=== PATIENT | female | born 1950 | race Caucasian/White ===

== ENCOUNTER 2020-12-25 16:19 | Inpatient (IN) | payer MEDICARE, BC ==
[2020-12-25] MEDS ORDERED: Diltiazem 125 MG/25 ML ONE (16:49)
[2020-12-25 17:09] LABS: #Eosinphils 0.2 thou/uL (0.0-0.7); #Lymphocytes 2.2 thou/uL (1.20-3.40); #Monocytes 0.7 thou/uL (0.11-0.59); #Neutrophils 4.6 thou/uL (1.40-6.50); %Basophils 0.6 % (0.0-1.0); %Eosinophils 3.1 % (0.0-10.0); %Lymphocytes 28.2 % (21.0-51.0); %Monocytes 9.1 % (0.0-10.0); %Neutrophils 59.1 % (42.0-75.0); Mean Corpuscular HGB CONC 33.9 g/dL (32.0-36.0); Mean Corpuscular Hemoglobin 33.3 pg (27.0-31.0); Mean Corpuscular Volume 98.2 fL (78.0-98.0); Mean Platelet Volume 7.1 fL (7.4-10.4); Platelet Count 259 thou/uL (130-400); RBC Distribution Width 11.9 % (11.5-14.5); Red Blood Cell (RBC) Count 4.21 mill/uL (4.20-5.40); White Blood Cell (WBC) Count 7.8 thou/uL (4.8-10.8)
--- NOTE | 2020-12-25 17:10 | RAD ---
EXAM: Single view of the chest HISTORY: Lightheadedness and dizziness COMPARISON: 12/05/2020 FINDINGS: Single view of the chest shows a normal sized cardiomediastinal silhouette. Atheroscleroti c calcifications are seen in the aorta. There is no evidence of consolidation, mass, or pleural effusion. No acute osseous abnormality. Postsurgical changes are seen in the left shoulder. IMPRESSION: No evidence of acute cardiopulmonary disease
[2020-12-25 17:55] LABS: ALT (SGPT) 46 U/L (8-55); AST (SGOT) 35 U/L (5-34); Albumin 4.1 g/dL (3.4-4.8); Alkaline Phosphatase 74 U/L (40-110); Anion Gap 16 mmol/L (10-20); BUN (Urea Nitrogen) 15 mg/dL (9.8-20.1); Bilirubin, Total 0.4 mg/dL (0.2-1.2); CK (CPK) 55 U/L (29-168); Calc. Creatinine Clearance 0 mL/min (70-130); Calcium 8.7 mg/dL (7.8-10.44); Carbon Dioxide 19 mmol/L (23-31); Chloride 109 mmol/L (98-107); Globulin 2.9 g/dL (2.4-3.5); Glucose 80 mg/dL (83-110); Potassium 3.7 mmol/L (3.5-5.1); Sodium 140 mmol/L (136-145)
[2020-12-25] MEDS ORDERED: Acetaminophen 650 MG Suppository PR PRN (19:29)
[2020-12-25] MEDS ORDERED: Acetaminophen 325 MG TAB PO PRN (19:29)
[2020-12-25 20:05] LABS: Troponin I 0.017 ng/mL (< 0.028)
[2020-12-25 21:12] LABS: Lactic Acid 0.9 mmol/L (0.5-2.2)
[2020-12-25] MEDS ORDERED: Famotidine 20 MG TAB PO SCH (23:00)
[2020-12-25] MEDS ORDERED: Metoprolol Tartrate 25 MG TAB PO SCH (23:00)
[2020-12-25] MEDS ORDERED: Dextrose 5 %-0.45 % NaCl 1,000 ML IV SCH (23:00)
[2020-12-25 23:30] VITALS: BMI 24.0
--- NOTE | 2020-12-25 23:36 | PDOC.HHP ---
Hospitalist HPI History of Present Illness: ADMISSION DATE: 12/25/2019 TIME OF ASSESSMENT: 1900 CHIEF COMPLAINT: Palpitations HPI: This is a 70-year-old woman who states she is normally healthy at baseline who presented to the emergency department today with complaints of palpitations and difficulty catching her breath earlier today. She was seen at the clinic in [place] and treated with 60 mg of diltiazem as well as 800 mL of normal saline after she was found to be in A. fib RVR with a heart rate in the 120s. She was apparently lightheaded and her symptoms improved after the diltiazem was given. Patient reports having a Covid infection in November and tested positive on 11/19/2020. She states she followed up with her primary care physician recently and was noted to have an elevated D-dimer therefore started on Eliquis 5 mg p.o. twice daily. The patient denies undergoing any CT imaging of her chest. She has been compliant with medications. Denies any difficulty with her breathing prior to today and the trouble breathing she had earlier today has settled since her heart rate improved. Denies having any cough or hemoptysis. Denies any chest pain but does report discomfort in the left posterior thorax which she states is not tender to palpation and not made worse with any movement. No lower leg swelling or edema. No calf tenderness. Reports having a good appetite without any nausea or vomiting. No abdominal pain or cramping. No bowel changes or urinary symptoms. Has not had any recent fevers, chills or sweats. All other review of systems are negative. ED COURSE: EKG repeated here in the ER showed A. fib RVR with a heart rate of 109. Infrequent PVCs present. Labs done showed a white cell count of 7.8, hemoglobin 14, hematocrit 41.4, platelets of 59, neutrophils 59.1%. Sodium 140, potassium 3.7, BUN 15, creatinine 0.82, GFR 69, glucose 80, LFTs notable for an AST of 35 otherwise unremarkable. CK 55. D-dimer negative. TSH is 0.4529. Troponin negative. BNP slightly elevated at 104.5. Chest x-ray demonstrated no evidence of acute cardiopulmonary process. The patient was given 10 mg of Cardizem IV push. Allergies/Adverse Reactions: Allergy/AdvReac Type Severity Reaction Status Date / Time codeine Allergy Nausea Verified 12/25/20 22:52 diphenhydramine Allergy Verified 12/25/20 22:52 [From Benadryl] Home Medications: Medication Instructions Recorded Confirmed Type Apixaban [Eliquis] 5 mg PO BID 12/25/20 12/25/20 History Thyroid,Pork [[place] Thyroid] 60 mg PO QAM 12/25/20 12/25/20 History Past History: PAST MEDICAL HISTORY: 1. GERD 2. Hypothyroidism 3. Chronic cough 4. Mixed hyperlipidemia PAST SURGICAL HISTORY: None SOCIAL HISTORY: She is fully independent at baseline and lives with her . Denies any tobacco use, alcohol consumption or drug use. FAMILY HISTORY: Noncontributory Hospitalist Exam Vitals: Weight Weight 144 lb 11.2 oz General Appearance: NAD, awake alert Eye: PERRL, anicteric sclera ENT: normocephalic atraumatic, no oropharyngeal lesions, moist mucosa Neck: supple, no lymphadenopathy Heart: RRR, no murmur, no gallops, no rubs, normal peripheral pulses Respiratory: CTAB, no wheezes, no rales, no ronchi, normal chest expansion Gastrointestinal: soft, non-tender, non-distended, normal bowel sounds, no palpable masses Extremities: no edema Skin: normal turgor, no lesions, no rashes Neurological: cranial nerve grossly intact, normal sensation to touch, no weakness Musculoskeletal: normal tone, normal strength, no muscle wasting Psychiatric: normal affect, normal behavior, A&O x 3 Hospitalist Results Result Diagrams: 12/25/20 16:56 12/25/20 16:56 Lab results: Laboratory Last Values WBC 7.8 thou/uL (4.8-10.8) 12/25/20 16:56 RBC 4.21 mill/uL (4.20-5.40) 12/25/20 16:56 Hgb 14.0 g/dL (12.0-16.0) 12/25/20 16:56 Hct 41.4 % (36.0-47.0) 12/25/20 16:56 MCV 98.2 fL (78.0-98.0) H 12/25/20 16:56 MCH 33.3 pg (27.0-31.0) H 12/25/20 16:56 MCHC 33.9 g/dL (32.0-36.0) 12/25/20 16:56 RDW 11.9 % (11.5-14.5) 12/25/20 16:56 Plt Count 259 thou/uL (130-400) 12/25/20 16:56 MPV 7.1 fL (7.4-10.4) L 12/25/20 16:56 Neutrophils % 59.1 % (42.0-75.0) 12/25/20 16:56 Lymphocytes % 28.2 % (21.0-51.0) 12/25/20 16:56 Monocytes % 9.1 % (0.0-10.0) 12/25/20 16:56 Eosinophils % 3.1 % (0.0-10.0) 12/25/20 16:56 Basophils % 0.6 % (0.0-1.0) 12/25/20 16:56 Neutrophils # 4.6 thou/uL (1.40-6.50) 12/25/20 16:56 Lymphocytes # 2.2 thou/uL (1.20-3.40) 12/25/20 16:56 Monocytes # 0.7 thou/uL (0.11-0.59) H 12/25/20 16:56 Eosinophils # 0.2 thou/uL (0.0-0.7) 12/25/20 16:56 Basophils # 0.0 thou/uL (0.0-0.2) 12/25/20 16:56 D-Dimer 0.38 *mcg/mL (0.27-0.43) 12/25/20 16:56 Sodium 140 mmol/L (136-145) 12/25/20 16:56 Potassium 3.7 mmol/L (3.5-5.1) 12/25/20 16:56 Chloride 109 mmol/L (98-107) H 12/25/20 16:56 Carbon Dioxide 19 mmol/L (23-31) L 12/25/20 16:56 Anion Gap 16 mmol/L (10-20) 12/25/20 16:56 BUN 15 mg/dL (9.8-20.1) 12/25/20 16:56 Creatinine 0.82 mg/dL (0.6-1.1) 12/25/20 16:56 Estimated GFR (MDRD) 69 12/25/20 16:56 Glucose 80 mg/dL (83-110) L 12/25/20 16:56 Lactic Acid 0.9 mmol/L (0.5-2.2) 12/25/20 20:43 Calcium 8.7 mg/dL (7.8-10.44) 12/25/20 16:56 Magnesium 2.2 mg/dL (1.6-2.6) 12/25/20 19:34 Total Bilirubin 0.4 mg/dL (0.2-1.2) 12/25/20 16:56 AST 35 U/L (5-34) H 12/25/20 16:56 ALT 46 U/L (8-55) 12/25/20 16:56 Alkaline Phosphatase 74 U/L (40-110) 12/25/20 16:56 Creatine Kinase 55 U/L (29-168) 12/25/20 16:56 Troponin I 0.017 ng/mL (< 0.028) 12/25/20 19:34 C-Reactive Protein 0.62 mg/dL (= or < 0.5) H 12/25/20 20:43 B-Natriuretic Peptide 104.5 pg/mL (0-100) H 12/25/20 16:56 Serum Total Protein 7.0 g/dL (5.8-8.1) 12/25/20 16:56 Albumin 4.1 g/dL (3.4-4.8) 12/25/20 16:56 Globulin 2.9 g/dL (2.4-3.5) 12/25/20 16:56 Albumin/Globulin Ratio 1.4 g/dL (1.2-2.2) 12/25/20 16:56 TSH 3rd Generation 0.4529 uIU/mL (0.35-4.94) 12/25/20 16:56 Hospitalist H&P A/P (1) Atrial fibrillation with RVR Code(s): I48.91 - UNSPECIFIED ATRIAL FIBRILLATION Status: Acute Assessment and Plan: Currently rate-controlled Rule out underlying infection i.e. UTI UA w/reflex Cx ordered Cardiac monitoring Continue to trend trop Cardiac consult ordered (2) Palpitations Code(s): R00.2 - PALPITATIONS Status: Resolved Assessment and Plan: Has resolved As above (3) Personal history of COVID-19 Code(s): Z86.16 - PERSONAL HISTORY OF COVID-19 Status: Acute Assessment and Plan: Recent COVID infection in 11/2020. CXR unremarkable. No s/s of COVID at present (4) On anticoagulant therapy Code(s): Z79.01 - [employer] (CURRENT) USE OF ANTICOAGULANTS Status: Acute Assessment and Plan: On Eliquis 5 mg BID For recent elevated d-dimer D-Dimer done today was normal (5) GERD (gastroesophageal reflux disease) Code(s): K21.9 - GASTRO-ESOPHAGEAL REFLUX DISEASE WITHOUT ESOPHAGITIS Status: Chronic Assessment and Plan: Famotidine 20 mg BID PO (6) Hypothyroidism Code(s): E03.9 - HYPOTHYROIDISM, UNSPECIFIED Status: Chronic Assessment and Plan: Resume home meds once doses verified Plan: CODE STATUS FULL Case discussed with Dr. Gordon who agrees with plan as above.
[2020-12-26 00:04] LABS: Troponin I 0.017 ng/mL (< 0.028)
[2020-12-26 01:03] LABS: Bacteria/HPF None Seen HPF (None Seen); Bilirubin Negative (Negative); Blood, Urine Negative (Negative); Clarity Clear (Clear); Glucose, Urine (Dipstick) Normal (Negative); Ketone, Urine Negative (Negative); Leukocyte Negative Leu/uL (Negative); Nitrite Negative (Negative); Protein, Urine (Dipstick) Negative (Neg-Trace); RBC/HPF 0-3 HPF (0-3); Specific Gravity, Urine 1.007 (1.002-1.036); Squamous Epithelial 0-3 HPF (0-3); Urobilinogen Normal mg/dL (Less than 2); WBC/HPF 0-3 HPF (0-3); pH, Urine 6.5 (5.0-9.0)
[2020-12-26] MEDS: Famotidine 20 MG TAB PO SCH ×3 (01:04→20:30)
[2020-12-26 01:07] LABS: Urine Culture Reflex No No
[2020-12-26 05:40] LABS: #Basophils 0.1 thou/uL (0.0-0.2); #Eosinphils 0.3 thou/uL (0.0-0.7); #Monocytes 0.6 thou/uL (0.11-0.59); #Neutrophils 3.9 thou/uL (1.40-6.50); %Basophils 1.4 % (0.0-1.0); %Eosinophils 4.8 % (0.0-10.0); %Lymphocytes 29.1 % (21.0-51.0); %Monocytes 8.9 % (0.0-10.0); %Neutrophils 55.9 % (42.0-75.0); Hemoglobin 12.5 g/dL (12.0-16.0); Mean Corpuscular HGB CONC 33.7 g/dL (32.0-36.0); Mean Corpuscular Hemoglobin 32.7 pg (27.0-31.0); Mean Corpuscular Volume 97.1 fL (78.0-98.0); Mean Platelet Volume 7.4 fL (7.4-10.4); Platelet Count 255 thou/uL (130-400); RBC Distribution Width 12.1 % (11.5-14.5); Red Blood Cell (RBC) Count 3.81 mill/uL (4.20-5.40); White Blood Cell (WBC) Count 6.9 thou/uL (4.8-10.8)
[2020-12-26 06:00] LABS: Anion Gap 12 mmol/L (10-20); BUN (Urea Nitrogen) 13 mg/dL (9.8-20.1); Calc. Creatinine Clearance 66 mL/min (70-130); Calcium 8.3 mg/dL (7.8-10.44); Carbon Dioxide 19 mmol/L (23-31); Chloride 106 mmol/L (98-107); Glucose 110 mg/dL (83-110); Sodium 133 mmol/L (136-145)
--- NOTE | 2020-12-26 08:19 | PDOC.HOSPP ---
- Subjective Encounter Date: 12/26/20 Encounter Time: 08:16 Subjective: alert, lightheadedness resolved - Objective Vital Signs & Weight: Vital Signs (12 hours) Temp Pulse Resp BP BP Pulse Ox 12/26/20 08:00 96.8 F L 70 18 94/43 L 95 12/26/20 03:22 98.4 F 64 16 101/52 L 96 12/25/20 23:00 120/56 L 12/25/20 22:54 97.6 F 73 18 176/61 H 98 Weight Weight 144 lb 11.2 oz I&O: 12/25/20 12/26/20 12/27/20 06:59 06:59 06:59 Intake Total 765 Output Total 250 Balance 515 Result Diagrams: 12/26/20 04:56 12/26/20 04:56 Hospitalist ROS - Medication Medications: Active Medications Generic Name Dose Route Start Last Admin Trade Name Freq PRN Reason Stop Dose Admin Famotidine 20 mg 12/25/20 21:00 12/26/20 01:04 Famotidine 20 Mg Tab PO Not Given BID [facility] Hospitalist Exam Vitals: Vital Signs (12 hours) Temp Pulse Resp BP BP Pulse Ox 12/26/20 08:00 96.8 F L 70 18 94/43 L 95 12/26/20 03:22 98.4 F 64 16 101/52 L 96 12/25/20 23:00 120/56 L 12/25/20 22:54 97.6 F 73 18 176/61 H 98 Weight Weight 144 lb 11.2 oz General Appearance: awake alert Neck: no JVD Heart: RRR, no murmur Respiratory: CTAB Gastrointestinal: soft, normal bowel sounds Extremities: no edema Hosp A/P (1) Atrial fibrillation with RVR Code(s): I48.91 - UNSPECIFIED ATRIAL FIBRILLATION Status: Acute (2) On anticoagulant therapy Code(s): Z79.01 - LONG-TERM (CURRENT) USE OF ANTICOAGULANTS Status: Chronic (3) GERD (gastroesophageal reflux disease) Code(s): K21.9 - GASTRO-ESOPHAGEAL REFLUX DISEASE WITHOUT ESOPHAGITIS Status: Chronic Qualifiers: Esophagitis bleeding: unspecified whether hemorrhage (4) Hypothyroidism Code(s): E03.9 - HYPOTHYROIDISM, UNSPECIFIED Status: Chronic Qualifiers: Hypothyroidism type: acquired Qualified Code(s): E03.9 - Hypothyroidism, unspecified - Plan now in RSR, cont metoprolol cont anticoagulant TSH normal, ECHO, cardiology consult pending
[2020-12-26] MEDS: Thyroid 60 MG TAB PO SCH (09:41)
[2020-12-26] MEDS: Metoprolol Tartrate 25 MG TAB PO SCH ×2 (09:42→20:31)
[2020-12-26] MEDS: Apixaban 5 MG TAB PO SCH ×2 (09:42→20:31)
--- NOTE | 2020-12-26 21:31 | CON ---
DATE OF CONSULTATION: 12/26/2020 CHIEF COMPLAINT: Palpitations. HISTORY OF PRESENT ILLNESS: Ms. Way is a pleasant 70-year-old female who presented to the hospital via the EMS from her primary care doctor clinic in [place] for the chief complaint of palpitations, who was subsequently found to be in atrial fibrillation with RVR and her doctor recommended that she come to the emergency room. In the ambulance on the way to the emergency room, her heart rate was in the 120. They gave her a total of 16 mg of diltiazem and 800 mL bolus of normal saline, which improved her symptoms. Upon arrival to [facility] [place], she was still found to be in atrial fibrillation with a rate in the 120s and another 10 mg of diltiazem was given prior to leaving the ER, her rhythm converted to normal sinus rhythm. She is a relatively healthy female, who otherwise has minimal medical problems. She has a history of hypothyroidism, GERD, chronic cough, hyperlipidemia, and skin cancer. She states that she has had palpitations over the years usually about one time a week. They last less than 1 minute and resolve spontaneously with cough or deep breathing. She was diagnosed with atrial fibrillation 20 years ago in the ER after initiating levothyroxine therapy for her hypothyroidism. However, on subsequent EKGs, she had been in normal sinus rhythm. She states her blood pressure usually runs low. She denied any cardiac problems in the past. She has never had a catheterization, echo, or stress test. She does not see a marine cargo specialist. Of note, she did recover from a COVID-19 infection that was diagnosed on November 19 of this year. She has been taking multivitamins including zinc, quercetin, vitamin D, vitamin C, vitamin K, and a multivitamin since that time. REVIEW OF SYSTEMS: She denies fever, chills, shortness of breath, chest pain, cramping in her legs with activity, swelling in her legs, polydipsia, polyuria, hot or cold intolerance, nausea, vomiting, diarrhea, constipation, hematochezia, hematemesis, melena, or syncope. PAST MEDICAL HISTORY: GERD, hypothyroidism, chronic cough, hyperlipidemia, history of skin cancer. PAST SURGICAL HISTORY: Skin cancer removal and left rotator cuff repair. FAMILY HISTORY: Sister from breast cancer. Father had coronary artery disease requiring CABG. SOCIAL HISTORY: The patient is a never smoker. Occasional alcohol use. Denies illicit drug use. She is retired. PHYSICAL EXAMINATION: VITAL SIGNS: Temperature 97.7, pulse 58, respirations 18, O2 saturations 98% on room air, blood pressure 97/52. ORTHOSTATIC VITAL SIGNS: Stable. GENERAL: No acute distress. HEAD: Normocephalic. HEART: Regular rate and rhythm. No murmurs, gallops, or rubs. Pulses full and equal, 2+ throughout. LUNGS: Clear to auscultation bilaterally. MUSCULOSKELETAL: Moves all 4 extremities. LABORATORY STUDIES: Unremarkable CBC and BMP. Troponins are negative. D-dimer is downtrending from 0.92 earlier in December to 0.38 on this hospital admission. Urinalysis negative. COVID detected in the last month, therefore no test on this admission. Chest x-ray showed no acute cardiopulmonary processes. ASSESSMENT AND PLAN: 1. Atrial fibrillation with rapid ventricular response, resolved. The patient is now in normal sinus rhythm on a new regimen of metoprolol 12.5 b.i.d., status post diltiazem push in the ambulance and in the ER. An echo is pending. The patient may benefit from outpatient cardiac monitoring. We will discuss with Dr. Wilson attending further management strategies. The patient is already taking Eliquis 5 mg b.i.d. for COVID-19 infection. 2. Hypothyroidism. Continue [place] Thyroid. 3. Chronic cough. Has been seen by Pulmonology and ENT in the past. 4. Hyperlipidemia. Lipid panel earlier in December showed a cholesterol of 242. Consider adding statin therapy due to her cardiac risk. We will discuss case further with Dr. Wilson, marine cargo specialist. Thank you for the consultation. Job ID: [id number] [facility]
--- NOTE | 2020-12-27 06:34 | CON ---
DATE OF CONSULTATION: 12/26/2020 ADDENDUM: Please refer to the notes already dictated by the Family Practice resident who is on the service, Dr. Lopez. We have seen and evaluated the patient. Again this is a very pleasant 70-year-old female who was admitted with atrial fibrillation with rapid ventricular response which then converted back to sinus rhythm. I would agree with the Assessment and Plan. We visited with this patient together and examined the patient. I would refer you to the Assessment and Plan, Physical Examination as well as Past Medical History, Social History on this patient as well as History of Present Illness dictated by Dr. Lopez. IMPRESSION: This is a 70-year-old female who has had an episode of new onset atrial fibrillation which reverted back to sinus rhythm, will be placed on p.o. beta blockers. She converted after she was given IV diltiazem, but she will be maintained on p.o. metoprolol at a low dose. Since she has converted, she is somewhat hypotensive as well as bradycardic with a heart rate in the 50s. At this time, we will continue to monitor her very carefully to see whether or not she will tolerate the metoprolol and hopefully this will be the case. She did have an echocardiogram which showed an ejection fraction to be normal at 65% to 70% and the left atrium is of normal size. The full dictated report can be found in the [facility] system. She has actually already been on anticoagulation. We will continue this medical management with anticoagulation. Hypothyroidism. This appears to be under good control at this time. We will be more than happy to continue to follow the patient with you. At this time, from a cardiac standpoint, she has converted to sinus rhythm. She remained stable. We will continue to monitor her overnight to assure that she remains stable. We would also advise that she have an event monitor to determine whether or not she continues to be in sinus rhythm once she is discharged from the hospital. If not, we may need to change her to some other more potent antiarrhythmic medication. Job ID: [id number]
[2020-12-27 08:10] VITALS: TEMP 97.9
[2020-12-27] MEDS: Famotidine 20 MG TAB PO SCH (08:48)
[2020-12-27] MEDS: Apixaban 5 MG TAB PO SCH (08:48)
[2020-12-27] MEDS: Metoprolol Tartrate 25 MG TAB PO SCH (08:48)
[2020-12-27] MEDS ORDERED: GUAIFENESIN SF SOLN 200 MG/10 ML UDCUP PO PRN (09:01)
[2020-12-27] MEDS ORDERED: Loperamide HCl 2 MG CAP PO PRN (09:01)
[2020-12-27] MEDS ORDERED: Calcium Carbonate 500 MG ChewTAB PO PRN (09:01)
[2020-12-27] MEDS ORDERED: Zolpidem Tartrate 5 MG TAB PO PRN (09:01)
[2020-12-27] MEDS ORDERED: Cepastat Lozenges 1 LOZ PO PRN (09:01)
[2020-12-27] MEDS ORDERED: Ondansetron PF 4 MG/2 ML Vial IVP PRN (09:01)
[2020-12-27] MEDS ORDERED: hydrALAZINE 20 MG/ML VIAL SLOW IVP PRN (09:01)
[2020-12-27] MEDS ORDERED: Bisacodyl 5 MG TAB PO PRN (09:01)
[2020-12-27] MEDS ORDERED: Senokot S 8.6-50 MG TAB PO PRN (09:01)
[2020-12-27] MEDS ORDERED: Sodium Chloride 0.65% Nasal 44 ML BOT EA NARE PRN (09:01)
[2020-12-27] MEDS ORDERED: Ondansetron ODT 4 MG TAB PO PRN (09:01)
[2020-12-27] MEDS: Thyroid 60 MG TAB PO SCH (09:15)
[2020-12-27 11:30] VITALS: BP 91/51
--- NOTE | 2020-12-27 12:51 | PDOC.CPN ---
- Subjective Date: 12/27/20 Time: 12:48 Interval history: Patient in room, dressed and will be discharged. Event monitor placed on patient. Instructions reviewed and given to patient & spouse - Review of Systems General: denies: fever/chills, weight/appetite/sleep changes, night sweats, fatigue Respiratory: denies: cough, congestion, shortness of breath, exercise intolerance Cardiovascular: denies: chest pain, palpitation, edema, paroxysmal nocturnal dyspnea, orthopnea Gastrointestinal: denies: nausea, vomiting, diarrhea, constipation, abd pain, GI bleeding Musculoskeletal: denies: pain, tenderness, stiffness, swelling, arthritis/arthralgias Neurological: denies: numbness, syncope, seizure, weakness - Objective Allergies/Adverse Reactions: Allergies Allergy/AdvReac Type Severity Reaction Status Date / Time codeine Allergy Nausea Verified 12/25/20 22:52 diphenhydramine Allergy Verified 12/25/20 22:52 [From [facility]] Visit Medications: Current Medications Acetaminophen (Acetaminophen 325 Mg Tab) 650 mg PO Q4H PRN PRN Reason: Headache/Fever/Mild Pain (1-3) Acetaminophen (Acetaminophen 650 Mg Suppository) [address] Q4H PRN PRN Reason: Headache/Fever/Mild Pain (1-3) Apixaban (Apixaban 5 Mg Tab) 5 mg PO BID [facility] Last Admin: 12/27/20 08:48 Dose: 5 mg Documented by: Bisacodyl (Bisacodyl 5 Mg Tab) 10 mg PO DAILYPRN PRN PRN Reason: Constipation Calcium Carbonate (Calcium Carbonate 500 Mg Chewtab) 1,000 mg PO Q4H PRN PRN Reason: Heartburn or Indigestion Famotidine (Famotidine 20 Mg Tab) 20 mg PO BID [facility] Last Admin: 12/27/20 08:48 Dose: 20 mg Documented by: Guaifenesin (Guaifenesin Sf Soln 200 Mg/10 Ml Udcup) 200 mg PO Q4H PRN PRN Reason: Cough Hydralazine HCl (Hydralazine 20 Mg/Ml Vial) 10 mg SLOW IVP Q4H PRN PRN Reason: SBP > 180 and HR < 70 Loperamide HCl (Loperamide Hcl 2 Mg Cap) 2 mg PO PRN PRN PRN Reason: Diarrhea/Loose Stools Metoprolol Tartrate (Metoprolol Tartrate 25 Mg Tab) 12.5 mg PO BID [facility] Last Admin: 12/27/20 08:48 Dose: 12.5 mg Documented by: Ondansetron HCl (Ondansetron Odt 4 Mg Tab) 4 mg PO Q6H PRN PRN Reason: Nausea/Vomiting Ondansetron HCl (Ondansetron Pf 4 Mg/2 Ml Vial) 4 mg IVP Q6H PRN PRN Reason: Nausea/Vomiting Senna/Docusate Sodium (Senokot S 8.6-50 Mg Tab) 2 tab PO BID PRN PRN Reason: Constipation Sodium Chloride (Flush - Normal Saline 10 Ml Syringe) 10 ml IVF Q12HR PRN PRN Reason: Saline Flush Last Admin: 12/27/20 08:49 Dose: 10 ml Documented by: Sodium Chloride (Flush - Normal Saline 10 Ml Syringe) 10 ml IVF PRN PRN PRN Reason: Saline Flush Sodium Chloride (Sodium Chloride 0.65% Nasal 44 Ml Bot) 0 ml EA NARE QIDPRN PRN PRN Reason: Nasal Congestion Throat Lozenges (Cepastat Lozenges 1 Stanislaw) 1 stanislaw PO Q2H PRN PRN Reason: Sore Throat Thyroid (Thyroid 60 Mg Tab) 60 mg PO QAM [facility] Last Admin: 12/27/20 09:15 Dose: 60 mg Documented by: Zolpidem Tartrate (Zolpidem Tartrate 5 Mg Tab) 5 mg PO HSPRN PRN PRN Reason: Insomnia Vital Signs & Weight: Vital Signs Temp Pulse Resp BP BP BP BP 12/27/20 11:24 70 91/51 L 12/27/20 11:21 65 99/53 L 12/27/20 11:15 62 87/43 L 12/27/20 08:48 12/27/20 07:35 97.9 F 60 20 98/44 L 12/27/20 04:00 98.3 F 56 L 18 100/53 L Pulse Ox 12/27/20 11:24 12/27/20 11:21 12/27/20 11:15 12/27/20 08:48 98 12/27/20 07:35 98 12/27/20 04:00 95 Weight 144 lb 11.2 oz - CHADS-VASc Age 65-74: 1 Female: 1 Risk Score: 2 - Quality Measures Condition: Atrial Fibrillation/Flutter (hx or current) CV meds: Beta Dara: Yes, Anticoagulant: Yes - Physical Exam General: alert & oriented x3, appears well, no apparent distress Neck: supple neck, midline trachea, no JVD/HJR Cardiac: no murmur, regular rate, regular rhythm Lungs: clear to auscultation, normal breath sounds Neuro: grossly intact Abdomen: active bowel sounds, soft Extremities: no cyanosis, no clubbing, no edema Skin: clear Musculoskeletal: no pain - Labs Result Diagrams: 12/26/20 04:56 12/26/20 04:56 Troponin/CKMB Troponin I 0.017 ng/mL (< 0.028) 12/25/20 23:02 - EKG Interpretation EKG Method: Telemetry EKG: sinus rhythm - Assessment/Plan Assessment/Plan: 1. New onset atrial fibrillation: Patient is on Eliquis and Metoprolol, her BP was in the 90's this morning, she also had a reading in the 80's stystolic. Advised to hold Metoprolol if her SBP <90. She remains in sinus rhythm, she has had no episodes of atrial fibrillation overnight. 2. hypothyroidism 3. Chronic cough Patient will wear event monitor for 2 weeks as outpatient, please follow-up with Dr. Wilson in three weeks. Discussed plan with patient & spouse. Dr. Wilson at bedside, discussed plan with Dr. Wilson, patient, & spouse. Pt. seen and eval. by me. I agree with the A/P by the PRESTIDIGITATOR. We will see her back in the office in about 3 weeks and eval. the monitor for any further arrhythmias. She is to call the office if she has any symptoms in the interim. [email or web address]
--- NOTE | 2020-12-27 14:09 | PDOC.DS.DS ---
Provider Date of Admission: 12/26/20 15:37 Date of Discharge: 12/27/20 Admitting Provider: Jennifer Gordon MD Consultations: Cardiology Primary Care Physician: Unknown Course Hospital Course: This is a 70-year-old woman who states she is normally healthy at baseline who presented to the emergency department today with complaints of palpitations and difficulty catching her breath earlier today. She was seen at the clinic in [place] and treated with 60 mg of diltiazem as well as 800 mL of normal saline after she was found to be in A. fib RVR with a heart rate in the 120s. She was apparently lightheaded and her symptoms improved after the diltiazem was given. Patient reports having a Covid infection in November and tested positive on 11/19/2020. She states she followed up with her primary care physician recently and was noted to have an elevated D-dimer therefore started on Eliquis 5 mg p.o. twice daily. The patient denies undergoing any CT imaging of her chest. She has been compliant with medications. Denies any difficulty with her breathing prior to today and the trouble breathing she had earlier today has settled since her heart rate improved. Denies having any cough or hemoptysis. Denies any chest pain but does report discomfort in the left posterior thorax which she s tates is not tender to palpation and not made worse with any movement. No lower leg swelling or edema. No calf tenderness. Reports having a good appetite without any nausea or vomiting. No abdominal pain or cramping. No bowel changes or urinary symptoms. Has not had any recent fevers, chills or sweats. All other review of systems are negative. ED COURSE: EKG repeated here in the ER showed A. fib RVR with a heart rate of 109. Infrequent PVCs present. Labs done showed a white cell count of 7.8, hemoglobin 14, hematocrit 41.4, platelets of 59, neutrophils 59.1%. Sodium 140, potassium 3.7, BUN 15, creatinine 0.82, GFR 69, glucose 80, LFTs notable for an AST of 35 otherwise unremarkable. CK 55. D-dimer negative. TSH is 0.4529. Troponin negative. BNP slightly elevated at 104.5. Chest x-ray demonstrated no evidence of acute cardiopulmonary process. The patient was given 10 mg of Cardizem IV push. After admission patient remained in sinus rhythm, cardiology was consulted, ca rdiology recommended continue metoprolol 12.5 mg twice daily and the patient is given event recorder, patient will follow up with the cardiology as an outpatient basis. Echocardiography showed normal EF. Patient will continue her Eliquis and I have provided metoprolol to her pharmacy. Patient is medically stable for discharge and cardiology cleared her for discharge as well. Resuscitation Status: 12/25/20 19:29 Resuscitation Status Routine Co-Sign Provider: Resuscitation Status: FULL: Full Resuscitation Lab Results: 12/26/20 04:56 12/26/20 04:56 Abnormal Lab Results - Last 48 hrs 12/25/20 16:56: Chloride 109 H, Carbon Dioxide 19 L, AST 35 H 12/25/20 16:56: B-Natriuretic Peptide 104.5 H 12/25/20 16:56: MCV 98.2 H, MCH 33.3 H, MPV 7.1 L, Monocytes # 0.7 H 12/25/20 20:43: C-Reactive Protein 0.62 H 12/26/20 04:56: Sodium 133 L, Carbon Dioxide 19 L 12/26/20 04:56: RBC 3.81 L, MCH 32.7 H, Basophils % 1.4 H, Monocytes # 0.6 H Vitals: Vital Signs (12 hours) Temp Pulse Resp BP BP BP BP 12/27/20 11:24 70 91/51 L 12/27/20 11:21 65 99/53 L 12/27/20 11:15 62 87/43 L 12/27/20 08:48 12/27/20 07:35 97.9 F 60 20 98/44 L 12/27/20 04:00 98.3 F 56 L 18 100/53 L Pulse Ox 12/27/20 11:24 12/27/20 11:21 12/27/20 11:15 12/27/20 08:48 98 12/27/20 07:35 98 12/27/20 04:00 95 Weight Weight 144 lb 11.2 oz Physical Exam: The patient was seen and examined on the day of discharge. General Appearance: NAD, awake alert Eye: PERRL, anicteric sclera ENT: normocephalic atraumatic, no oropharyngeal lesions Neck: supple, symmetric, no JVD, no thyromegaly Respiratory: CTAB, no wheezes, no rales, no ronchi Cardiovascular: RRR, no murmur, no gallops, no rubs Gastrointestinal: soft, non-tender, non-distended Extremities: no cyanosis, no clubbing, no edema Skin: normal turgor, no lesions Neurological: no focal deficits Musculoskeletal: normal tone, normal strength PSYCH: normal affect, normal behavior Problem (1) Atrial fibrillation with RVR Code(s): I48.91 - UNSPECIFIED ATRIAL FIBRILLATION Status: Acute (2) Personal history of COVID-19 Code(s): Z86.16 - PERSONAL HISTORY OF COVID-19 Status: Acute (3) GERD (gastroesophageal reflux disease) Code(s): K21.9 - GASTRO-ESOPHAGEAL REFLUX DISEASE WITHOUT ESOPHAGITIS Status: Chronic Qualifiers: Esophagitis bleeding: unspecified whether hemorrhage (4) Hypothyroidism Code(s): E03.9 - HYPOTHYROIDISM, UNSPECIFIED Status: Chronic Qualifiers: Hypothyroidism type: acquired Qualified Code(s): E03.9 - Hypothyroidism, unspecified (5) On anticoagulant therapy Code(s): 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 Status: Chronic (6) Palpitations Code(s): R00.2 - PALPITATIONS Status: Resolved Plan Prescriptions: Metoprolol Tartrate [Lopressor] 12.5 mg PO BID #30 tab Home Medications: Medication Instructions Recorded Confirmed Type Apixaban [Eliquis] 5 mg PO BID 12/25/20 12/25/20 History Thyroid,Pork [[place] Thyroid] 60 mg PO QAM 12/25/20 12/25/20 History Metoprolol Tartrate [Lopressor] 12.5 mg PO BID #30 tab 12/27/20 Rx Allergies: codeine Allergy (Verified 12/25/20 22:52) Nausea diphenhydramine [From Benadryl] Allergy (Verified 12/25/20 22:52) Activity:: Activity as Tolerated Nourishment:: Heart Healthy Diet Therapies:: Not Applicable Equipment/Supplies:: Not Applicable IV Therapy:: Not Applicable Referrals: Belkis Wilson MD [Active] - 2-3 Weeks Andreina Reyes MD [Active] - 7 Days Disposition: HOME Quality CORE MEASURES:: N/A
== END 2020-12-27 13:05 | disposition home or self-care (01) | DRG 310 ==
LOC: ERS 16:19 → 3SE 18:52 → OBSVTOIN 12-26 15:37
PROVIDERS: ADMIT Internal Medicine; ATTEND Internal Medicine
DX: I48.91 Unspecified atrial fibrillation (principal); K21.9 Gastro-esophageal reflux disease without esophagitis; E78.2 Mixed hyperlipidemia; E03.9 Hypothyroidism, unspecified; Z79.01 Long term (current) use of anticoagulants; Z79.890 Hormone replacement therapy; Z88.6 Allergy status to analgesic agent; Z88.8 Allergy status to other drugs, medicaments and biological substances; Z86.16 Personal history of COVID-19; Z85.828 Personal history of other malignant neoplasm of skin; Z80.3 Family history of malignant neoplasm of breast; Z82.49 Family history of ischemic heart disease and other diseases of the circulatory system
CPT/HCPCS: 36415; 71045; 80048; 80053; 81001; 82550; 83605; 83735; 83880; 84443; 84484; 85025; 85379; 86140; 93005; 93306; 96374

== ENCOUNTER 2021-01-13 17:30 | Observation (INO) | payer MEDICARE, BC ==
[2021-01-13 18:05] LABS: #Basophils 0.1 thou/uL (0.0-0.2); #Eosinphils 0.1 thou/uL (0.0-0.7); #Neutrophils 9.9 thou/uL (1.40-6.50); %Basophils 0.5 % (0.0-1.0); %Eosinophils 0.8 % (0.0-10.0); %Lymphocytes 20.9 % (21.0-51.0); %Monocytes 7.3 % (0.0-10.0); %Neutrophils 70.5 % (42.0-75.0); Hemoglobin 13.8 g/dL (12.0-16.0); Mean Corpuscular HGB CONC 33.3 g/dL (32.0-36.0); Mean Corpuscular Hemoglobin 32.3 pg (27.0-31.0); Mean Corpuscular Volume 97.2 fL (78.0-98.0); Mean Platelet Volume 7.3 fL (7.4-10.4); Platelet Count 325 thou/uL (130-400); RBC Distribution Width 12.1 % (11.5-14.5); Red Blood Cell (RBC) Count 4.27 mill/uL (4.20-5.40); White Blood Cell (WBC) Count 14.1 thou/uL (4.8-10.8)
[2021-01-13 18:25] LABS: ALT (SGPT) 44 U/L (8-55); AST (SGOT) 35 U/L (5-34); Albumin 4.8 g/dL (3.4-4.8); Alkaline Phosphatase 98 U/L (40-110); Anion Gap 19 mmol/L (10-20); BUN (Urea Nitrogen) 21 mg/dL (9.8-20.1); Bilirubin, Total 0.4 mg/dL (0.2-1.2); Calc. Creatinine Clearance 0 mL/min (70-130); Carbon Dioxide 18 mmol/L (23-31); Chloride 101 mmol/L (98-107); Globulin 3.3 g/dL (2.4-3.5); Glucose 96 mg/dL (83-110); Potassium 3.3 mmol/L (3.5-5.1); Protein, Total 8.1 g/dL (5.8-8.1); Sodium 135 mmol/L (136-145)
[2021-01-13 18:57] LABS: Bilirubin Negative (Negative); Blood, Urine Negative (Negative); Clarity Clear (Clear); Glucose, Urine (Dipstick) Normal (Negative); Ketone, Urine 10 mg/dL (Negative); Leukocyte Negative Leu/uL (Negative); Nitrite Negative (Negative); Protein, Urine (Dipstick) Negative (Neg-Trace); Specific Gravity, Urine 1.004 (1.002-1.036); Urobilinogen Normal mg/dL (Less than 2)
[2021-01-13] MEDS ORDERED: Acetaminophen 500 MG TAB ONE (19:20)
[2021-01-13] MEDS ORDERED: Aspirin Chewable 81 MG TAB ONE (20:03)
[2021-01-13 21:26] LABS: Troponin I Less than 0.010 ng/mL (< 0.028)
[2021-01-14 00:24] LABS: Troponin I 0.027 ng/mL (< 0.028)
[2021-01-14] MEDS ORDERED: Potassium Chloride 20 MEQ TAB PO SCH (04:15)
[2021-01-14] MEDS ORDERED: Potassium Chloride 20 MEQ TAB ONE (04:38)
[2021-01-14 04:54] LABS: #Eosinphils 0.2 thou/uL (0.0-0.7); #Lymphocytes 2.4 thou/uL (1.20-3.40); #Monocytes 0.6 thou/uL (0.11-0.59); #Neutrophils 3.8 thou/uL (1.40-6.50); %Basophils 0.2 % (0.0-1.0); %Eosinophils 3.5 % (0.0-10.0); %Lymphocytes 33.6 % (21.0-51.0); %Monocytes 8.7 % (0.0-10.0); Hemoglobin 12.2 g/dL (12.0-16.0); Mean Corpuscular HGB CONC 34.3 g/dL (32.0-36.0); Mean Corpuscular Hemoglobin 33.7 pg (27.0-31.0); Mean Corpuscular Volume 98.2 fL (78.0-98.0); Mean Platelet Volume 7.1 fL (7.4-10.4); Platelet Count 264 thou/uL (130-400); RBC Distribution Width 12.2 % (11.5-14.5); Red Blood Cell (RBC) Count 3.63 mill/uL (4.20-5.40)
[2021-01-14 05:05] LABS: Anion Gap 14 mmol/L (10-20); BUN (Urea Nitrogen) 21 mg/dL (9.8-20.1); Calc. Creatinine Clearance 0 mL/min (70-130); Calcium 8.6 mg/dL (7.8-10.44); Carbon Dioxide 20 mmol/L (23-31); Chloride 108 mmol/L (98-107); Glucose 104 mg/dL (83-110); Sodium 138 mmol/L (136-145)
[2021-01-14] MEDS ORDERED: Aspirin Chewable 81 MG TAB ONE (07:25)
[2021-01-14] MEDS ORDERED: Aspirin Chewable 81 MG TAB PO SCH (09:00)
== END 2021-01-14 08:39 | disposition short-term general hospital (02) ==
LOC: ERS 17:30 → INTOOBSV 20:13 → ERHOLD 20:13 → OBSVTOIN 20:13
PROVIDERS: ADMIT Student in an Organized Health Care Education/Training Program; ATTEND Internal Medicine
DX: R07.89 Other chest pain (principal); R42 Dizziness and giddiness; I48.91 Unspecified atrial fibrillation; E87.6 Hypokalemia; K21.9 Gastro-esophageal reflux disease without esophagitis; E03.9 Hypothyroidism, unspecified; E78.5 Hyperlipidemia, unspecified; Z86.16 Personal history of COVID-19; Z79.01 Long term (current) use of anticoagulants; Z79.899 Other long term (current) drug therapy; Z88.5 Allergy status to narcotic agent; Z88.8 Allergy status to other drugs, medicaments and biological substances
CPT/HCPCS: 36415; 70450; 71045; 80048; 80053; 81003; 83735; 84484; 85025; 85379; 93005